=== PATIENT | female | born 1980 | race Two or more races ===

== ENCOUNTER 2018-05-25 17:52 | Emergency (ER) | payer OTHER ==
[~2018-05-25] VITALS: Ht 154.9 cm; Wt 64.4 kg
[2018-05-25 18:00] VITALS: BP 180/110
--- NOTE | 2018-05-25 18:31 | NUR ---
PT IS HERE AFTER HAVING SOME VAGINAL BLEEDING, PT REPORTS SHE IS 5 WEEKS AND WAS SEEN AT OBGYN ON SATURDAY BUT DID NOT HEAR FROM THEM. SHE REPORTS HAVING MORE VAGINAL BLEEDING TODAY AND IS CONCERNED. PT REPORTS SATURATING A PAD. PT PLACED ON OBGYN BED AND AWAITING FURTHER ORDERS. CALL LIGHT IN REACH.
[2018-05-25 18:47] LABS: BASOPHILS # (AUTO) 0.05 x10^3/uL (0-0.1); BASOPHILS % (AUTO) 1 % (0-1); EOSINOPHILS # (AUTO) 0.13 x10^3/uL (0-0.4); EOSINOPHILS % (AUTO) 2 % (1-7); LYMPHOCYTES # (AUTO) 2.44 x10^3/uL (1-3.4); LYMPHOCYTES % (AUTO) 28 % (22-44); MD NO; MEAN CORPUSCULAR HEMOGLOBIN 27.3 pg (27.0-34.8); MEAN CORPUSCULAR HGB CONC 32.4 g/dL (32.4-35.8); MEAN CORPUSCULAR VOLUME 84.2 fL (80-100); MEAN PLATELET VOLUME 9.3 fL (7.4-10.4); MONOCYTES # (AUTO) 0.62 x10^3/uL (0.2-0.8); MONOCYTES % (AUTO) 7 % (2-9); NEUTROPHILS # (AUTO) 5.41 x10^3/uL (1.8-6.8); NEUTROPHILS % (AUTO) 63 % (42-75); PLATELET COUNT 366 x10^3/uL (130-400); RED BLOOD COUNT 4.52 x10^6/uL (3.82-5.3); RED CELL DISTRIBUTION WIDTH 14.4 % (9.6-15.2)
--- NOTE | 2018-05-25 18:48 | NUR ---
PT TO US AT THIS TIME.
[2018-05-25 18:55] LABS: ALANINE AMINOTRANSFERASE 23 U/L (12-78); ANION GAP 9 mmol/L (5-15); CALCIUM 9.1 mg/dL (8.5-10.1); CHLORIDE 105 mmol/L (98-107); CREATININE 0.68 mg/dL (0.55-1.02)
[2018-05-25 19:13] LABS: ALKALINE PHOSPHATASE 61 U/L (45-117); BILIRUBIN,TOTAL 0.4 mg/dL (0.2-1.0); TOTAL PROTEIN 7.9 g/dL (6.4-8.2)
--- NOTE | 2018-05-25 19:45 | NUR ---
UA SENT TO LAB
[2018-05-25 20:07] LABS: MICROSCOPIC AUTO
[2018-05-25 20:11] LABS: CULTURE INDICATED? YES
--- NOTE | 2018-05-25 20:42 | NUR ---
CHARTUP FOR RECHEKC AT THIS TIME.
--- NOTE | 2018-05-25 21:28 | NUR ---
Patient/Caregiver given discharge instructions and they have confirmed that they understand the instructions. Patient ambulatory with steady gait.
== END 2018-05-25 21:29 | disposition home or self-care (01) ==
LOC: ED 19:45
DX: O20.0 Threatened abortion (principal); R68.89 Other general symptoms and signs; I10 Essential (primary) hypertension
CPT/HCPCS: 36415; 76801; 80053; 81001; 84702; 85025; 86901; 87086; 99284

== ENCOUNTER 2018-06-03 11:40 | Emergency (ER) | payer OTHER ==
[~2018-06-03] VITALS: Ht 154.9 cm; Wt 60.0 kg
--- NOTE | 2018-06-03 12:01 | NUR ---
First contact with pt. Per pt, "I went to my doctor and she said I had a miscarriage. My hormone levels are dropping. She told me to wait at home until the sack passed. I have a follow up appointment on 06/12. 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 Then on Saturday I passed the sack, then saturday the bleeding was worse. (Pt shows picture of blood clot and what appears to be embryonic sack)" Pt denies fevers, cp, sob, n/v/d. Pt tearful and guarding abdomen. Pt ambulates with one assist to restroom. Pt provided urine sample. Pt's spouse at bedside. Pt connected to NIBP and continous pulse ox.
[2018-06-03] MEDS ORDERED: MORPHINE SULFATE 4 MG/ML, 1ML ONE (12:15)
[2018-06-03 12:25] LABS: BASOPHILS # (AUTO) 0.03 x10^3/uL (0-0.1); BASOPHILS % (AUTO) 0 % (0-1); EOSINOPHILS % (AUTO) 2 % (1-7); LYMPHOCYTES # (AUTO) 2.24 x10^3/uL (1-3.4); LYMPHOCYTES % (AUTO) 38 % (22-44); MD NO; MEAN CORPUSCULAR HEMOGLOBIN 26.6 pg (27.0-34.8); MEAN CORPUSCULAR HGB CONC 32.3 g/dL (32.4-35.8); MEAN CORPUSCULAR VOLUME 82.3 fL (80-100); MEAN PLATELET VOLUME 9.2 fL (7.4-10.4); MONOCYTES # (AUTO) 0.41 x10^3/uL (0.2-0.8); MONOCYTES % (AUTO) 7 % (2-9); NEUTROPHILS # (AUTO) 3.08 x10^3/uL (1.8-6.8); NEUTROPHILS % (AUTO) 53 % (42-75); PLATELET COUNT 378 x10^3/uL (130-400); RED BLOOD COUNT 4.37 x10^6/uL (3.82-5.3); RED CELL DISTRIBUTION WIDTH 14.2 % (9.6-15.2)
[2018-06-03] MEDS ORDERED: MORPHINE SULFATE 4 MG/ML, 1ML IVPush PRN (12:30)
[2018-06-03] MEDS ORDERED: SODIUM CHLORIDE FLUSH 10ML SYR IVF ONE (12:30)
[2018-06-03] MEDS ORDERED: ONDANSETRON 2MG/ML, 2ML ONE (12:37)
[2018-06-03 12:38] LABS: ALBUMIN 3.9 g/dL (3.4-5.0); ANION GAP 8 mmol/L (5-15); CALCIUM 8.9 mg/dL (8.5-10.1); CHLORIDE 110 mmol/L (98-107)
[2018-06-03 12:44] LABS: ALANINE AMINOTRANSFERASE 24 U/L (12-78); ALKALINE PHOSPHATASE 62 U/L (45-117); BILIRUBIN,TOTAL 0.7 mg/dL (0.2-1.0); TOTAL PROTEIN 7.7 g/dL (6.4-8.2)
[2018-06-03] MEDS ORDERED: ONDANSETRON 2MG/ML, 2ML IVPush ONE (13:00)
--- NOTE | 2018-06-03 13:23 | NUR ---
PT TO ULTRASOUND AT THIS TIME.
[2018-06-03 13:42] LABS: MICROSCOPIC NOT IND
--- NOTE | 2018-06-03 13:43 | NUR ---
Pt away at ultrasound at this time.
[2018-06-03 13:44] LABS: CULTURE INDICATED? NO
--- NOTE | 2018-06-03 14:05 | NUR ---
Pt back to room from ultrasound on [facility].
[2018-06-03] MEDS ORDERED: KETOROLAC 30 MG/1 ML IVPush ONE (14:30)
[2018-06-03 14:33] VITALS: BP 118/70
[2018-06-03] MEDS ORDERED: IBUP-1222 PO (14:36)
[2018-06-03] MEDS ORDERED: METH750T2 PO (14:36)
[2018-06-03] MEDS ORDERED: LISI1TAB5 PO (14:36)
[2018-06-03] MEDS ORDERED: ACET-1600 PO (14:36)
[2018-06-03] MEDS ORDERED: AMLO10TA8 PO (14:36)
[2018-06-03] MEDS ORDERED: NITR100C56 PO (14:38)
[2018-06-03] MEDS ORDERED: KETOROLAC 30 MG/1 ML ONE (14:43)
--- NOTE | 2018-06-03 14:55 | NUR ---
Provided pt with medication per EMAR. Pt appreciative. Provided pt feminine disposal pads and underwear. PT appreciative.
--- NOTE | 2018-06-03 15:22 | NUR ---
Patient given discharge instructions and they have confirmed that they understand the instructions. Patient ambulatory with steady gait. Pt states, "I am feeling much better now. Thank you for taking care of me." Pt left with discharge paperwork, prescription, and all personal belongings.
== END 2018-06-03 15:25 | disposition home or self-care (01) ==
LOC: ED 13:28
DX: O03.9 Complete or unspecified spontaneous abortion without complication (principal); O34.11 Maternal care for benign tumor of corpus uteri, first trimester; I10 Essential (primary) hypertension
CPT/HCPCS: 36415; 76801; 80053; 81003; 83690; 84702; 85025; 96374; 96375; 99284; J1885; J2405

== ENCOUNTER 2019-06-12 19:02 | Emergency (ER) | payer OTHER ==
[~2019-06-12] VITALS: Ht 162.6 cm; Wt 80.0 kg
[~2019-06-12 19:02] MED LIST: ACET-1600 PO; AMLO10TA8 PO; IBUP-1222 PO; LISI1TAB19 PO; METH750T2 PO; NITR100C56 PO
[2019-06-12] MEDS ORDERED: SODIUM CHLORIDE FLUSH 10ML SYR IVF ONE (20:00)
[2019-06-12] MEDS ORDERED: SODIUM CHLORIDE 0.9% 1,000ML IVBOLUS ONE (20:00)
--- NOTE | 2019-06-12 20:29 | NUR ---
Pt presents to room reporting cough with sore throat, chills, body aches, and SOB for 5 days. Pt describes the cough as producing yellow sputum. Pt states she only has pain in her chest with coughing. Pt states she is 6-8 weeks . Pt then reports being seen at urgent care yesterday with negative strep and flu tests.
[2019-06-12 20:40] LABS: RAPID INFLUENZA A Negative (Negative); RAPID INFLUENZA B Negative (Negative)
[2019-06-12 20:41] LABS: BASOPHILS # (AUTO) 0.04 x10^3/uL (0-0.1); BASOPHILS % (AUTO) 0 % (0-1); EOSINOPHILS # (AUTO) 0.25 x10^3/uL (0-0.4); EOSINOPHILS % (AUTO) 3 % (1-7); LYMPHOCYTES # (AUTO) 1.91 x10^3/uL (1-3.4); LYMPHOCYTES % (AUTO) 20 % (22-44); MD NO; MEAN CORPUSCULAR HEMOGLOBIN 21.4 pg (27.0-34.8); MEAN CORPUSCULAR HGB CONC 30.9 g/dL (32.4-35.8); MEAN CORPUSCULAR VOLUME 69.4 fL (80-100); MONOCYTES # (AUTO) 0.68 x10^3/uL (0.2-0.8); MONOCYTES % (AUTO) 7 % (2-9); NEUTROPHILS # (AUTO) 6.72 x10^3/uL (1.8-6.8); NEUTROPHILS % (AUTO) 70 % (42-75); PLATELET COUNT 419 x10^3/uL (130-400); RED BLOOD COUNT 4.51 x10^6/uL (3.82-5.3)
[2019-06-12 20:51] LABS: ALANINE AMINOTRANSFERASE 20 U/L (12-78); ALBUMIN 3.3 g/dL (3.4-5.0); CALCIUM 9.1 mg/dL (8.5-10.1); CREATININE 0.59 mg/dL (0.55-1.02)
[2019-06-12 21:05] LABS: ANION GAP 7 mmol/L (5-15); CHLORIDE 108 mmol/L (98-107)
[2019-06-12 21:08] LABS: ALKALINE PHOSPHATASE 58 U/L (45-117); BILIRUBIN,TOTAL 0.2 mg/dL (0.2-1.0); TOTAL PROTEIN 7.3 g/dL (6.4-8.2)
[2019-06-12] MEDS ORDERED: LABETALOL 5MG/ML, 20ML IVPush ONE (21:30)
[2019-06-12] MEDS ORDERED: DEXAMETHASONE 4 MG TABLET PO ONE (21:30)
[2019-06-12] MEDS ORDERED: LABETALOL 5MG/ML, 20ML ONE (22:18)
[2019-06-12] MEDS ORDERED: DEXAMETHASONE 4 MG TABLET ONE (22:18)
[2019-06-12 22:23] LABS: MICROSCOPIC NOT IND
[2019-06-12 22:32] LABS: CULTURE INDICATED? NO
[2019-06-12 23:52] VITALS: BP 139/81
== END 2019-06-13 00:23 | disposition home or self-care (01) ==
LOC: ED 23:49
DX: O98.511 Other viral diseases complicating pregnancy, first trimester (principal); B34.9 Viral infection, unspecified; J02.8 Acute pharyngitis due to other specified organisms; O16.1 Unspecified maternal hypertension, first trimester; O21.9 Vomiting of pregnancy, unspecified; Z3A.01 Less than 8 weeks gestation of pregnancy
CPT/HCPCS: 36415; 71045; 80053; 81003; 83605; 84145; 84702; 85025; 87040; 87400; 93005; 99285; J7030

== ENCOUNTER → 2019-12-23 | Outpatient (CLI) | payer OTHER | END | disposition home or self-care (01) | LOC: STAR 08:00 → EDSTATUS 12-28 14:28 | PROVIDERS: ATTEND Obstetrics & Gynecology | DX: Z01.812 Encounter for preprocedural laboratory examination (principal); Z20.828 Contact with and (suspected) exposure to other viral communicable diseases; O82 Encounter for cesarean delivery without indication | CPT/HCPCS: 36415; 87635 ==

== ENCOUNTER 2019-12-28 06:04 | Inpatient (IN) | payer MEDICAID, OTHER ==
[~2019-12-28] VITALS: Ht 154.9 cm; Wt 75.0 kg
[~2019-12-28 06:04] MED LIST changes: -LISI1TAB19 PO; +LISI1TAB39 PO
[2019-12-28] MEDS ORDERED: LACTATED RINGERS 1,000 ML IV SCH (06:07)
[2019-12-28] MEDS ORDERED: OXYTOCIN 30U/ 0.9% NaCL 500ML 500 ML ONE (06:08)
[2019-12-28] MEDS ORDERED: NEWBORN KIT ONE (06:08)
[2019-12-28] MEDS ORDERED: METOCLOPRAMIDE 5 MG/ML, 2ML ONE (06:09)
[2019-12-28] MEDS ORDERED: METH250T3 PO (06:24)
[2019-12-28] MEDS ORDERED: PREN-3 PO (06:24)
[2019-12-28] MEDS ORDERED: LABE200T6 PO (06:25)
[2019-12-28] MEDS ORDERED: LACTATED RINGERS 1,000 ML IVBOLUS ONE (06:30)
[2019-12-28] MEDS ORDERED: METOCLOPRAMIDE 5 MG/ML, 2ML IV ONE (06:30)
[2019-12-28] MEDS ORDERED: SODIUM CITRATE/CITRIC ACID 30 ML UDC PO ONE (06:30)
[2019-12-28 06:43] LABS: BASOPHILS # (AUTO) 0.03 x10^3/uL (0-0.1); BASOPHILS % (AUTO) 0 % (0-1); EOSINOPHILS # (AUTO) 0.09 x10^3/uL (0-0.4); EOSINOPHILS % (AUTO) 1 % (1-7); LYMPHOCYTES % (AUTO) 20 % (22-44); MD NO; MEAN CORPUSCULAR HEMOGLOBIN 30.4 pg (27.0-34.8); MEAN CORPUSCULAR VOLUME 92.1 fL (80-100); MONOCYTES # (AUTO) 0.52 x10^3/uL (0.2-0.8); MONOCYTES % (AUTO) 7 % (2-9); NEUTROPHILS % (AUTO) 71 % (42-75); PLATELET COUNT 202 x10^3/uL (130-400); RED BLOOD COUNT 3.99 x10^6/uL (3.82-5.3); RED CELL DISTRIBUTION WIDTH 14.2 % (9.6-15.2)
[2019-12-28] MEDS ORDERED: ONDANSETRON 2MG/ML, 2ML ONE (07:22)
[2019-12-28] MEDS ORDERED: CEFAZOLIN 1,000 MG ONE (07:22)
[2019-12-28] MEDS ORDERED: OXYTOCIN 10 UNITS/ML, 1ML ONE (07:22)
[2019-12-28] MEDS ORDERED: KETOROLAC 30 MG/1 ML ONE (07:23)
[2019-12-28] MEDS ORDERED: FENTANYL PF 100 MCG/2ML ONE (07:23)
[2019-12-28] MEDS ORDERED: SODIUM CHLORIDE 0.9% PF 10ML ONE ×2 (07:23)
[2019-12-28] MEDS ORDERED: HYDROmorphone 2 MG/ML, 1ML ONE (07:23)
[2019-12-28] MEDS ORDERED: LABETALOL 5MG/ML, 20ML ONE (08:43)
[2019-12-28] MEDS: LACTATED RINGERS 1,000 ML IV SCH ×4 (08:54→18:54)
[2019-12-28] MEDS ORDERED: CARBOPROST TROMETHAMINE 250 MCG/ML, 1ML IM PRN (09:00)
[2019-12-28] MEDS: METHYLDOPA 250 MG TABLET PO SCH ×3 (09:00→21:12)
[2019-12-28] MEDS: KETOROLAC 30 MG/1 ML IV SCH ×3 (09:00→21:06)
[2019-12-28] MEDS ORDERED: TRANEXAMIC ACID 100 MG/ML, 10ML IV ONE (09:00)
[2019-12-28] MEDS: PRENATAL VIT/IRON/FA 1 EACH TABLET PO SCH (09:00)
[2019-12-28] MEDS ORDERED: OXYcodone/APAP 5/325MG TABLET PO PRN (09:00)
[2019-12-28] MEDS ORDERED: ONDANSETRON 2MG/ML, 2ML IV PRN (09:00)
[2019-12-28] MEDS ORDERED: CALCIUM CARBONATE 500 MG TAB.CHEW PO PRN (09:00)
[2019-12-28] MEDS: OXYTOCIN 30U/ 0.9% NaCL 500ML 500 ML IV SCH ×2 (10:05→18:54)
[2019-12-28 11:00] VITALS: BP 157/91
[2019-12-28] MEDS: ACETAMINOPHEN 325 MG TABLET PO PRN ×3 (12:09→21:06)
[2019-12-28] MEDS: OXYcodone IR 5MG TABLET PO PRN ×3 (12:09→21:06)
[2019-12-28] MEDS: MEPERIDINE/PF 50 MG/ML IV PRN (13:42)
[2019-12-28 15:21] VITALS: BP 135/81
[2019-12-28] MEDS: LABETALOL 200 MG TABLET PO SCH (16:41)
[2019-12-28 17:32] LABS: BASOPHILS % (AUTO) 0 % (0-1); EOSINOPHILS # (AUTO) 0.03 x10^3/uL (0-0.4); EOSINOPHILS % (AUTO) 0 % (1-7); LYMPHOCYTES # (AUTO) 1.11 x10^3/uL (1-3.4); LYMPHOCYTES % (AUTO) 12 % (22-44); MD NO; MEAN CORPUSCULAR HEMOGLOBIN 30.6 pg (27.0-34.8); MEAN CORPUSCULAR VOLUME 92.6 fL (80-100); MEAN PLATELET VOLUME 8.7 fL (7.4-10.4); MONOCYTES # (AUTO) 0.35 x10^3/uL (0.2-0.8); MONOCYTES % (AUTO) 4 % (2-9); NEUTROPHILS # (AUTO) 8.07 x10^3/uL (1.8-6.8); NEUTROPHILS % (AUTO) 84 % (42-75); PLATELET COUNT 167 x10^3/uL (130-400); RED CELL DISTRIBUTION WIDTH 13.9 % (9.6-15.2)
[2019-12-28 20:10] VITALS: BP 131/82
[2019-12-28] MEDS: DOCUSATE 100 MG CAPSULE PO PRN (21:06)
[2019-12-28] MEDS: SIMETHICONE 80 MG CHEW TAB PO PRN (21:06)
[2019-12-29] MEDS: LACTATED RINGERS 1,000 ML IV SCH ×5 (00:54→16:54)
[2019-12-29 01:00] VITALS: BP 150/95
[2019-12-29] MEDS: OXYcodone IR 5MG TABLET PO PRN ×5 (01:27→22:00)
[2019-12-29] MEDS: ACETAMINOPHEN 325 MG TABLET PO PRN ×5 (01:27→22:01)
[2019-12-29] MEDS: KETOROLAC 30 MG/1 ML IV SCH ×4 (03:09→21:11)
[2019-12-29] MEDS: SIMETHICONE 80 MG CHEW TAB PO PRN ×2 (03:09→19:34)
[2019-12-29] MEDS: OXYTOCIN 30U/ 0.9% NaCL 500ML 500 ML IV SCH ×2 (04:54→14:54)
[2019-12-29 05:00] VITALS: BP 129/75
[2019-12-29 07:50] VITALS: BP 146/87
[2019-12-29] MEDS: LABETALOL 200 MG TABLET PO SCH ×2 (08:02→19:34)
[2019-12-29] MEDS: DOCUSATE 100 MG CAPSULE PO PRN ×2 (08:49→22:00)
[2019-12-29] MEDS: METHYLDOPA 250 MG TABLET PO SCH ×3 (08:50→21:12)
[2019-12-29] MEDS: PRENATAL VIT/IRON/FA 1 EACH TABLET PO SCH (08:50)
[2019-12-29] MEDS: MEPERIDINE/PF 50 MG/ML IV PRN (12:26)
[2019-12-29 12:29] VITALS: BP 168/87
[2019-12-29 15:55] VITALS: BP 148/90
[2019-12-29 19:45] VITALS: BP_SYST 131; BP_SYST 155; BP_DIAS 82; BP_DIAS 89
[2019-12-30 00:04] VITALS: BP 159/88
[2019-12-30] MEDS: LACTATED RINGERS 1,000 ML IV SCH ×2 (00:54)
[2019-12-30] MEDS: OXYTOCIN 30U/ 0.9% NaCL 500ML 500 ML IV SCH (00:54)
[2019-12-30] MEDS: KETOROLAC 30 MG/1 ML IV SCH (03:04)
[2019-12-30] MEDS: SIMETHICONE 80 MG CHEW TAB PO PRN ×2 (03:05→22:21)
[2019-12-30] MEDS: OXYcodone IR 5MG TABLET PO PRN ×5 (03:05→23:50)
[2019-12-30] MEDS: ACETAMINOPHEN 325 MG TABLET PO PRN ×5 (03:05→21:11)
[2019-12-30 04:35] VITALS: BP 137/81
[2019-12-30] MEDS: LABETALOL 200 MG TABLET PO SCH ×2 (07:47→18:25)
[2019-12-30 08:00] VITALS: BP 133/83
[2019-12-30] MEDS: PRENATAL VIT/IRON/FA 1 EACH TABLET PO SCH (09:01)
[2019-12-30] MEDS: DOCUSATE 100 MG CAPSULE PO PRN ×2 (09:01→19:36)
[2019-12-30] MEDS: METHYLDOPA 250 MG TABLET PO SCH ×3 (09:01→21:11)
[2019-12-30] MEDS: IBUPROFEN 800 MG TABLET PO PRN ×2 (09:01→17:04)
[2019-12-30 12:00] VITALS: BP 142/87
[2019-12-30 16:21] VITALS: BP 146/87
[2019-12-30 19:45] VITALS: BP 152/93
[2019-12-31] VITALS: BP 132/82
[2019-12-31] MEDS: ACETAMINOPHEN 325 MG TABLET PO PRN ×4 (04:01→21:38)
[2019-12-31] MEDS: OXYcodone IR 5MG TABLET PO PRN ×2 (04:02→12:16)
[2019-12-31 04:30] VITALS: BP 149/87
[2019-12-31] MEDS: LABETALOL 200 MG TABLET PO SCH (07:47)
[2019-12-31] MEDS: PRENATAL VIT/IRON/FA 1 EACH TABLET PO SCH (07:47)
[2019-12-31] MEDS: DOCUSATE 100 MG CAPSULE PO PRN ×2 (07:47→21:38)
[2019-12-31] MEDS: IBUPROFEN 800 MG TABLET PO PRN ×2 (07:47→16:00)
[2019-12-31 08:14] VITALS: BP 150/94
[2019-12-31] MEDS ORDERED: OMEPRAZOLE 20 MG CAPSULE.DR PO ONE (11:00)
[2019-12-31 12:00] VITALS: BP 152/91
[2019-12-31] MEDS: SIMETHICONE 80 MG CHEW TAB PO PRN (16:01)
[2019-12-31 17:16] VITALS: BP 166/97
[2019-12-31 20:05] VITALS: BP 159/88
[2020-01-01] MEDS: OXYcodone IR 5MG TABLET PO PRN ×2 (00:01→10:12)
[2020-01-01 00:15] VITALS: BP 166/84
[2020-01-01 00:45] VITALS: BP 161/82
[2020-01-01] MEDS: niFEDipine ER 60 MG TABLET.ER PO SCH ×2 (01:41→09:00)
[2020-01-01] MEDS: ACETAMINOPHEN 325 MG TABLET PO PRN ×3 (04:28→14:35)
[2020-01-01] MEDS: IBUPROFEN 800 MG TABLET PO PRN ×2 (04:28→13:59)
[2020-01-01 04:31] VITALS: BP 131/71
[2020-01-01 07:55] VITALS: BP 131/80
[2020-01-01] MEDS: DOCUSATE 100 MG CAPSULE PO PRN (10:11)
[2020-01-01] MEDS: PRENATAL VIT/IRON/FA 1 EACH TABLET PO SCH (10:11)
[2020-01-01] MEDS ORDERED: IBUP-1222 PO (10:48)
[2020-01-01] MEDS ORDERED: OXYC-302 PO (10:48)
[2020-01-01] MEDS ORDERED: HYDR-3341 PO (10:49)
[2020-01-01 12:25] VITALS: BP 131/84
[2020-01-01] MEDS ORDERED: ONDANSETRON 4 MG TABLET PO ONE (15:00)
[2020-01-01] MEDS ORDERED: MEPERIDINE/PF 50 MG/ML IM PRN (15:00)
[2020-01-01 15:05] VITALS: BP 156/89
[2020-01-01] MEDS ORDERED: MEPERIDINE/PF 50 MG/ML ONE (15:05)
[2020-01-01] MEDS ORDERED: ONDANSETRON ODT 4 MG ONE (15:05)
== END 2020-01-01 16:15 | disposition home or self-care (01) | DRG 785 ==
LOC: LDIP 06:04 → 2NW 10:57
PROVIDERS: ADMIT Obstetrics & Gynecology; ATTEND Obstetrics & Gynecology
PROC: 10D00Z1 Extraction of Products of Conception, Low, Open Approach (ICD-10-PCS; principal; 2019-12-28)
PROC: 0UB70ZZ Excision of Bilateral Fallopian Tubes, Open Approach (ICD-10-PCS; 2019-12-28)
DX: O34.211 Maternal care for low transverse scar from previous cesarean delivery (principal); D25.9 Leiomyoma of uterus, unspecified; O16.4 Unspecified maternal hypertension, complicating childbirth; O34.13 Maternal care for benign tumor of corpus uteri, third trimester; Z37.0 Single live birth; Z3A.37 37 weeks gestation of pregnancy
CPT/HCPCS: 36415; 85014; 85018; 85025; 86592; 86850; 86900; 86923; 88302; G0378; J0690; J1170; J1885; J2175; J2405; J3010; Q0162; J2590; J2765; J7120

== ENCOUNTER 2020-01-06 13:07 | Observation (INO) | payer MEDICAID ==
[~2020-01-06] VITALS: Ht 154.9 cm; Wt 65.4 kg
[~2020-01-06 13:07] MED LIST changes: +HYDR-3341 PO; +LABE200T6 PO; +METH250T3 PO; +OXYC-302 PO; +PREN-3 PO
[2020-01-06 13:53] LABS: BASOPHILS # (AUTO) 0.03 x10^3/uL (0-0.1); BASOPHILS % (AUTO) 0 % (0-1); EOSINOPHILS # (AUTO) 0.57 x10^3/uL (0-0.4); EOSINOPHILS % (AUTO) 6 % (1-7); LYMPHOCYTES # (AUTO) 1.66 x10^3/uL (1-3.4); LYMPHOCYTES % (AUTO) 17 % (22-44); MD NO; MEAN CORPUSCULAR HEMOGLOBIN 29.3 pg (27.0-34.8); MEAN CORPUSCULAR HGB CONC 31.7 g/dL (32.4-35.8); MEAN CORPUSCULAR VOLUME 92.3 fL (80-100); MEAN PLATELET VOLUME 8.3 fL (7.4-10.4); MONOCYTES # (AUTO) 0.56 x10^3/uL (0.2-0.8); MONOCYTES % (AUTO) 6 % (2-9); NEUTROPHILS # (AUTO) 6.92 x10^3/uL (1.8-6.8); NEUTROPHILS % (AUTO) 71 % (42-75); PLATELET COUNT 410 x10^3/uL (130-400); RED BLOOD COUNT 5.29 x10^6/uL (3.82-5.3); RED CELL DISTRIBUTION WIDTH 13.8 % (9.6-15.2)
[2020-01-06 13:56] LABS: ALBUMIN 3.3 g/dL (3.4-5.0); ANION GAP 9 mmol/L (5-15); BILIRUBIN, DIRECT 0.2 mg/dL (0.1-0.2); CALCIUM 9.2 mg/dL (8.5-10.1); CHLORIDE 105 mmol/L (98-107)
[2020-01-06 14:02] LABS: ALANINE AMINOTRANSFERASE 49 U/L (12-78); ALKALINE PHOSPHATASE 122 U/L (45-117); BILIRUBIN,TOTAL 0.9 mg/dL (0.2-1.0); CREATININE 0.47 mg/dL (0.55-1.02); TOTAL PROTEIN 7.9 g/dL (6.4-8.2)
[2020-01-06] MEDS ORDERED: ACETAMINOPHEN 325 MG TABLET ONE ×2 (14:05→17:14)
[2020-01-06] MEDS: ACETAMINOPHEN 325 MG TABLET PO PRN ×2 (14:07→17:39)
[2020-01-06 14:12] LABS: MICROSCOPIC AUTO
[2020-01-06 14:23] LABS: CREATININE,URINE RANDOM < 13.00 mg/dL; TOTAL PROTEIN,URINE RANDOM 6 mg/dL (0-12)
[2020-01-06] MEDS ORDERED: LISI40TA PO (16:31)
[2020-01-06] MEDS ORDERED: AMLO-302 PO (16:48)
== END 2020-01-06 18:00 | disposition home or self-care (01) ==
LOC: LDOP 13:07 → LDIP 13:35
PROVIDERS: ADMIT Obstetrics & Gynecology; ATTEND Obstetrics & Gynecology
DX: O14.95 Unspecified pre-eclampsia, complicating the puerperium (principal); O99.345 Other mental disorders complicating the puerperium; F41.9 Anxiety disorder, unspecified; O90.89 Other complications of the puerperium, not elsewhere classified; R51 Headache; R30.9 Painful micturition, unspecified
CPT/HCPCS: 36415; 80053; 81001; 82248; 82570; 83615; 84156; 84550; 85025; G0378